=== PATIENT | male | born 1960 | race Caucasian/White ===

== ENCOUNTER 2019-01-13 19:58 | Emergency (ER) | payer MEDICAID ==
[2019-01-13] MEDS: SOD CHLORIDE 0.9% 1,000 ML IV (22:08)
[2019-01-13] MEDS: LORAZEPAM 2 MG INJ IV (22:20)
== END 2019-01-14 02:48 | disposition home or self-care (01) ==
LOC: E/R 01-14 02:48
DX: F10.920 Alcohol use, unspecified with intoxication, uncomplicated (principal); R40.2132 Coma scale, eyes open, to sound, at arrival to emergency department; R40.2212 Coma scale, best verbal response, none, at arrival to emergency department; R40.2312 Coma scale, best motor response, none, at arrival to emergency department
CPT/HCPCS: J2060